=== PATIENT | female | born 1970 | race Caucasian/White ===

== ENCOUNTER 2016-08-28 13:43 | Emergency (ER) | payer OTHER ==
[~2016-08-28] VITALS: Ht 157.5 cm; Wt 94.0 kg
[~2016-08-28 13:43] MED LIST: ARTIFICIAL TEAR15 M1 BOTH EYES; BELSOMRA10 MG PO; BENTYL10 MG PO; BENTYL20 MG PO; CYANOCOBAL1000 MCG/2 IM; CYMBALTA60 MG PO; DESOWEN60 GM TP; ECONAZOLE NITRA15 GM TP; FLAGYL500 MG PO; FLONASE16 G1 BOTH NARES; GAS-X125 MG PO; IMITREX100 MG PO; ITCHY EYE5 ML BOTH EYES; KLONOPIN1 MG PO; LIDODERM 5% P1 PATCH TD; LO LOESTRIN FE1 EACH PO; LOCOID45 GM TP; MICROGESTIN1 EAC1 PO; MORPHINE SULFAT15 M1 PO; NAFTIN45 G1 TP; NORCO 10/3251 TABLET PO; PARAFON FORTE500 MG PO; PROAIR RESPICL90 MCG IH; QUESTRAN PACKET4 GM PO; RESTASIS 01 DROP/0.4 BOTH EYES; SKIN TREATMENT225 GM TP; STOOL SOFTENER100 M1 PO; TESSALON PERLE100 MG PO; TROKENDI XR200 MG PO; VALTREX50 MG/ML PO; ZANAFLEX4 MG PO; ZOFRAN ODT8 MG PO; [UNRECOGNIZED DRUG - OTHER] TP
[2016-08-28 16:55] VITALS: BP 132/90
== END 2016-08-28 17:33 | disposition home or self-care (01) ==
LOC: EME 13:43
DX: S16.1XXA Strain of muscle, fascia and tendon at neck level, initial encounter (principal); M54.5 Low back pain; M25.512 Pain in left shoulder; V43.52XA Car driver injured in collision with other type car in traffic accident, initial encounter; Y92.410 Unspecified street and highway as the place of occurrence of the external cause; Z72.0 Tobacco use; G89.29 Other chronic pain
CPT/HCPCS: 72040; 72070; 72100; 99281; 99285; J2270

== ENCOUNTER 2016-09-17 16:21 | Emergency (ER) | payer OTHER ==
[~2016-09-17] VITALS: Ht 157.5 cm; Wt 89.0 kg
[2016-09-17 18:44] LABS: ADD MIUA? YES; BILIRUBIN NEGATIVE; BLOOD NEGATIVE; COLOR YELLOW ((YELLOW)); GLUCOSE (STRIP) NEGATIVE; KETONES NEGATIVE; LEUKOCYTES NEGATIVE; NITRITE NEGATIVE; PROTEIN (STRIP) 30; SPECIFIC GRAVITY 1.018 (1.000-1.030); UROBILINOGEN 0.2 MG/DL (0.2-1.0)
[2016-09-17 19:08] LABS: EPITHELIAL CELLS 1+ /HPF; RED BLOOD CELLS 0-5 /HPF (0-5); WHITE BLOOD CELLS 0-5 /HPF (0-5)
[2016-09-17 19:09] LABS: BACTERIA 1+ /HPF; MUCUS 4+ /LPF
[2016-09-17] MEDS ORDERED: MOTRIN600 MG PO (20:39)
[2016-09-17] MEDS ORDERED: REGLAN10 MG PO (20:39)
[2016-09-17 20:52] VITALS: BP 125/91
== END 2016-09-17 21:00 | disposition home or self-care (01) ==
LOC: RME 16:21 → EME 16:21 → RME 21:00
PROVIDERS: Physician Assistant
DX: J20.9 Acute bronchitis, unspecified (principal); F17.200 Nicotine dependence, unspecified, uncomplicated; J45.909 Unspecified asthma, uncomplicated; R51 Headache; M79.7 Fibromyalgia; Z90.49 Acquired absence of other specified parts of digestive tract
CPT/HCPCS: 71020; 81003; 94640; 99281; 99284; J1885; J2765

== ENCOUNTER → 2016-11-28 | Outpatient (CLI) | payer OTHER ==
[~2016-11-28] MED LIST changes: +MOTRIN600 MG PO; +REGLAN10 MG PO
== END | disposition home or self-care (01) ==
LOC: NUC 09-30 07:00
DX: K58.9 Irritable bowel syndrome, unspecified (principal); K31.84 Gastroparesis; Z86.010 Personal history of colon polyps
CPT/HCPCS: 78264; A9541

== ENCOUNTER 2017-01-07 14:52 | Emergency (ER) | payer OTHER ==
[~2017-01-07] VITALS: Ht 160 cm; Wt 84.0 kg
[2017-01-07] MEDS ORDERED: QVAR 80 MCG IN7.3 GM IH (15:08)
[2017-01-07] MEDS ORDERED: BUSPIRONE HCL10 MG PO (15:09)
[2017-01-07 18:58] VITALS: BP 148/96
== END 2017-01-07 18:58 | disposition home or self-care (01) ==
LOC: EME 14:52
DX: S16.1XXA Strain of muscle, fascia and tendon at neck level, initial encounter (principal); S06.9X1A Unspecified intracranial injury with loss of consciousness of 30 minutes or less, initial encounter; S43.402A Unspecified sprain of left shoulder joint, initial encounter; W18.30XA Fall on same level, unspecified, initial encounter; Y92.008 Other place in unspecified non-institutional (private) residence as the place of occurrence of the external cause; M54.6 Pain in thoracic spine; J45.909 Unspecified asthma, uncomplicated; M79.7 Fibromyalgia; F32.9 Major depressive disorder, single episode, unspecified; F17.210 Nicotine dependence, cigarettes, uncomplicated; Z79.891 Long term (current) use of opiate analgesic
CPT/HCPCS: 70450; 72040; 72070; 73030; 99281; 99283